=== PATIENT | male | born 1950 | race Caucasian/White ===

== ENCOUNTER 2016-11-14 21:34 | Observation (INO) | payer BC ==
--- NOTE | ~2016-11-14 | HP ---
History And Physical [address] [address] NAME: SULEMAN BOLDEN : 50 STATUS : ADM Keith PAT#: [id number] AGE: 66 ADM/REG DATE : 11/14/16 MR#: [id number] REPORT SERV DATE: 11/15/16 DICTATED BY: DATE: REPORT STATUS : Draft TRANSCRIBED BY: MODL DATE: 11/15/16 DATE OF ADMISSION: 11/14/2016 TERMITE EXTERMINATOR HELPER: Garrison Arellano MD. SLEEP STUDY: Salvador Sharif MD CHIEF COMPLAINT: Chest pain and shortness of breath. HISTORY OF PRESENT ILLNESS: This is a 66-year-old white male with a history of coronary artery disease, status post PCI x2 in 2011; PE x3; and DVT. The patient reports to have started feeling palpitations about six months ago that have worsened over time and have started waking him up in the middle of the night. He also reports increased fatigue and shortness of breath that has been worse especially his shortness of breath on minimal exertion. He reports the shortness of breath to have started a few weeks ago. He reports chest pain radiating to his left arm being and 8-9/10 that has occurred intermittently in the past month, but has worsened on Tuesday. The pain was relieved somewhat with one nitroglycerin and the pain reoccurred before he came to the emergency room. He reports that he also was nauseous during his chest pain event. He did not have any diaphoresis, but he did have dizziness on standing. Currently, he denies any chest pain, shortness of breath, nausea, vomiting, or diaphoresis. The patient denies any personal history of a stroke. The patient denies any recent fevers or chills. No syncopal episodes. PAST MEDICAL HISTORY: 1. PE x3 and a DVT. He is followed by Dr. Avila. 2. Coronary artery disease, status post stents x2 in 2011. 3. Hyperlipidemia. 4. Hypertension. 5. Daytime somnolence, has seen Dr. Arce. 6. ZHANG, sees Dr. Sharif. PAST SURGICAL HISTORY: Left eyelid surgeries, sinus surgery, three detached retinas repair, left knee replacement, and a right thumb surgery. REVIEW OF SYSTEMS: A 14-point review of systems was performed significant for HPI. No other contributory diagnoses identified. ALLERGIES: ACETAMINOPHEN, REACTION GOUT. HOME MEDICATIONS: Aspirin 81 p.o. daily, carvedilol 6.25 p.o. twice a day, Zyrtec 5 mg p.o. p.r.n., Plavix 75 p.o. daily, Folbic two tabs p.o. daily, Cozaar 50 p.o. daily, NitroQuick 0.4 mg sublingual p.r.n., simvastatin 20 p.o. at bedtime, and apple cider vinegar one unit p.o. three times daily. History And Physical [address] [address] NAME: SULEMAN BOLDEN : 50 STATUS : ADM Keith PAT#: [id number] AGE: 66 ADM/REG DATE : 11/14/16 MR#: [id number] REPORT SERV DATE: 11/15/16 DICTATED BY: DATE: REPORT STATUS : Draft TRANSCRIBED BY: MODL DATE: 11/15/16 PHYSICAL EXAMINATION: VITAL SIGNS: BP 116/72, heart rate 58, respirations 18, temperature 97.5, O2 saturation 95% on room air. BMI 38.3. GENERAL: Cooperative, in no apparent distress. HEENT: Head normocephalic, anicteric. Normal EOM. PERRLA. No xanthelasma. Nares patent. Moist mucous membranes. NECK: Trachea midline. No thyromegaly, JVD or bruits. RESPIRATORY: Clear to auscultation bilaterally anterior and posterior. Respirations even and unlabored. No wheezes, rhonchi or crackles. CARDIOVASCULAR: Regular rate and rhythm. No murmur, rub or gallop appreciated. No chest wall tenderness to palpation. ABDOMEN: Soft, nontender, nondistended, normal bowel sounds auscultated throughout. No masses or organomegaly. Obesity. EXTREMITIES: No peripheral edema. DP/PT and radial pulses palpable bilaterally. No clubbing or cyanosis. SKIN: Warm, dry and intact. Normal turgor. No pallor or cyanosis. NEURO/PSYCH: Alert, oriented x3 with no acute distress. Affect appropriate to current situation. LABORATORY DATA: Sodium 140, potassium 3.6, BUN 20, creatinine 0.96, GFR 95, glucose 131, calcium 9.1, magnesium 2.1. White blood cells 5.1, hemoglobin 12.9, hematocrit 38.3, platelets 133. INR 1.0. Troponins x2 have been less than 0.02. Chest PA and lateral; lungs are clear. Heart size is normal. EKG done on 11/15/2016 at 0745 shows sinus alexis, first-degree AV block with PVC. machine accountant shows sinus rhythm, 69, with frequent PVCs. ASSESSMENT AND PLAN: 1. Substernal chest pain. Chest pain x2 less than 0.02. EKG shows first-degree AV block with PVCs. Cardiac risk factors include hypertension, hyperlipidemia, and coronary artery disease. The patient has been observed in the CPOU to rule out myocardial infarction with serial enzymes and serial EKGs. We will keep the patient n.p.o. We will plan an MPI after a CTA of the chest. If the CTA of the chest is negative, we will get an MPI. If stress test shows no ischemia or low risk scan, RN may discharge the patient home. If anything is suggestive of ischemia, Cardiology referral will be initiated. The patient recently saw Dr. Arellano on 11/11/2016 and was given a 24-hour Holter monitor, which I have instructed the family to return to the office today so we can get those results. Dr. Arellano had also ordered an exercise stress test for this coming up Tuesday, therefore, we will plan an MPI today due to patient's chest pain. machine accountant only shows frequent PVCs, no other ectopy noted. The patient had a cardiac cath on 08/29/2014; conclusion shows coronary artery disease with prior PCI to LAD crescendo angina, CCS IV. 2. Patent stent to LAD with moderate disease of remaining LAD segments that does not appear flow limiting and is without significant change compared to 2014 study. 3. Normal left ventricular systolic function. 4. No angiographic evidence of mitral regurgitation. History And Physical [address] [place]. [address] NAME: SULEMAN BOLDEN : 50 STATUS : ADM Keith PAT#: [id number] AGE: 66 ADM/REG DATE : 11/14/16 MR#: [id number] REPORT SERV DATE: 11/15/16 DICTATED BY: DATE: REPORT STATUS : Draft TRANSCRIBED BY: MODL DATE: 11/15/16 5. No gradient across aortic valve on LV pullback. RECOMMENDATION: 1. Medical therapy for coronary artery disease and cardiovascular risk factors and recommended addition of long-lasting nitrate. 2. Shortness of breath. The patient reports to have shortness of breath with minimal exertion. He has a history of PE x3; therefore, today we will get a CT of the chest due to those reasons above. If the CTA does not show any PE, we will then schedule an MPI today. 3. Coronary artery disease, status post PCI. The patient is on aspirin, beta carl, Plavix, and Zocor, we will continue those. 4. Hyperlipidemia. The patient is on statin. We will continue that. 5. Obstructive sleep apnea. Patient wears a CPAP and has brought it with him and uses it during the night or during naps during the day. 6. Obesity, has a BMI of 38.3. We discussed weight management. EKS/MODL Wojciech Ronquillo APN / [id number] CC: Marnia Pathak, MSN, REINFORCED STEEL PLACING SUPERVISOR-BC PK MENARD MD Mark Thel, M.D.
--- NOTE | ~2016-11-14 | CN ---
Consultation Report [facility] [address] [place]. [address] NAME: SULEMAN FITZPATRICK : 50 STATUS : ADM Keith PAT#: [id number] AGE: 66 ADM/REG DATE : 11/14/16 MR#: [id number] REPORT SERV DATE: 11/15/16 DICTATED BY: NICHO LEAVITT DATE: 11/15/16 REPORT STATUS : Draft TRANSCRIBED BY: MODL DATE: 11/15/16 GI CONSULTATION DATE OF CONSULTATION: 11/15/2016 REASON FOR CONSULTATION: Evaluation and management of abnormal CTA of the pancreas. HISTORY OF PRESENT ILLNESS: Mr. Fitzpatrick is a 66-year-old male patient, who has been seen by Dr. Talavera in the distant past, most recently, followed by Dr. Cortes in [facility], who presented to [facility] on the 11/14/2016 with a chief complaint of chest pain and shortness of breath. He has a history of coronary artery disease. He is status post PCI x2 in 2011 with the use of Plavix. He also in that year had PE x3 as well as DVT. He was on a regimen of Coumadin for one year. He had since been off that. He has been having what he describes as palpitations for several months that has worsened. He states that he has been waking up at night. He has shortness of breath especially on exertion with chest pain that radiated to his left arm which he states worsened on Tuesday causing him to come in to [facility] for further evaluation. He has had a stress test which results are not back from that yet. He also underwent a CTA of the chest to rule out pulmonary embolus as he was complaining of shortness of breath and has a pertinent history of PE. That exam did not show any pulmonary embolus, it just showed some atelectasis, but it did reveal a developing 1.3 cm pancreatic body cystic lesion, potentially a mucinous/serous cystadenoma or a side-branch IPMN. Therefore, we were consulted to see him for further evaluation. In the body of the report it indicates that this area has been developing since 2011. He is unaware of anything abnormal with his pancreas. He also had showed predominant fatty replacement of his pancreas. He denies any abdominal pain, nausea, vomiting, heartburn, indigestion, or trouble swallowing. He states he has had an EGD as well as colonoscopy within the last four years [address]. Cortes. I have discussed this with the patient as well as his , who is present. I have discussed this with Dr. Haines. We will try to discuss with Dr. Veloz, who read the report to see how this has changed since 2011, if so, we would most likely follow him up as an outpatient with Dr. Noguera to discuss an endoscopic ultrasound. Potential of CT pancreatic protocol before he is discharged today. PAST MEDICAL HISTORY: He has a pertinent past medical history for chest pain; coronary artery disease, status post stents in 2011; PE and DVT in 2012, treated with one year of Coumadin; hyperlipidemia; hypertension; obstructive sleep apnea with CPAP; obesity. SURGICAL HISTORY: Eyelid surgery, sinus surgery, detached retinal repair, left knee replacement, right thumb surgery. FAMILY HISTORY: Positive for liver carcinoma in his mother. SOCIAL HISTORY: Negative for alcohol, tobacco, or illicits. He lives independently with his . Consultation Report [address] [place]. [address] NAME: SULEMAN FITZPATRICK : 50 STATUS : ADM Keith PAT#: [id number] AGE: 66 ADM/REG DATE : 11/14/16 MR#: [id number] REPORT SERV DATE: 11/15/16 DICTATED BY: NICHO LEAVITT DATE: 11/15/16 REPORT STATUS : Draft TRANSCRIBED BY: FERNANDA DATE: 11/15/16 ALLERGIES: TO TYLENOL. HOME MEDICATIONS: Aspirin, Coreg, Zyrtec, Plavix, Mobic, Cozaar, nitroglycerin, Zocor, and apple cider vinegar. REVIEW OF SYSTEMS: A 10-point review of systems has been obtained with pertinent positives being addressed in the history of present illness. PHYSICAL EXAMINATION: VITAL SIGNS: Temperature is 98.0, pulse 53, respirations 15, blood pressure 145/79. NEUROLOGIC: Reveals an alert, obese male, resting in bed with no focal deficits. GENERAL: Cooperative, in no apparent distress. Awake, alert, and oriented x3. HEAD, EARS, EYES, NOSE, AND THROAT: Anicteric. Pupils equal, round, and reactive to light and accommodation. Normocephalic and atraumatic. NECK: No JVD. No palpable nodes. Supple. LUNGS: Clear anteriorly with normal respiratory effort exhibited. Equal expansion. CARDIOVASCULAR SYSTEM: Regular rate and rhythm. ABDOMEN: Obese, nontender, nondistended. EXTREMITIES: Scant lower extremity edema. He has normal distal palpable pulses. SKIN: Warm, dry, and intact. PERTINENT LABORATORY DATA: Sodium 145, potassium 3.6, BUN is 20, creatinine 0.96. White count 5.1, hemoglobin 12.9, hematocrit is 38.3, platelet count of 133. LFTs within normal range. Normal lipase. ASSESSMENT: 1. Abnormal CT of the pancreas with developing pancreatic body cystic lesion, question mucinous/serous cystoadenoma versus side branch intraductal papillary mucinous neoplasm. 2. Chest pain. 3. Shortness of breath. 4. History of coronary artery disease with stents, on aspirin and Plavix. 5. History of pulmonary embolism and deep venous thrombosis in 2011, treated with one year of Coumadin. 6. Obesity. PLAN: 1. Stress test results are pending at this time. 2. We will check a CA-19-9. 3. CT abdomen pelvis with pancreatic protocol versus MRCP versus outpatient EUS. He will need his Plavix held for five days prior to any endoscopic ultrasound. We will follow. Consultation Report [address] [place]. [address] NAME: SULEMAN FITZPATRICK : 50 STATUS : ADM Keith PAT#: [id number] AGE: 66 ADM/REG DATE : 11/14/16 MR#: [id number] REPORT SERV DATE: 11/15/16 DICTATED BY: NICHO LEAVITT DATE: 11/15/16 REPORT STATUS : Draft TRANSCRIBED BY: FERNANDA DATE: 11/15/16 REYNOLD/FERNANDA CYRUS Mchugh / [id number] CC: Marina Pathak, MSN, BRIDGE INSTRUCTOR-BC PK MENARD
[~2016-11-14 21:34] MED LIST: ANDROGEL5 TOP; ASAB PO; ATV1 PO; C5 PO; COREG3 PO; COREG6 PO; CYANO1000T PO; FOLIC ACID PO; GINKGO BILO2 PO; IMDUR30 PO; MAX25 PO; MULTIPLE VIT PO; NITROQUICK0.4 MG SL; PLAVIX PO; PRILO PO; PRIN10 PO; PROBIOTIC PO; TESTOST CYP200 MG/ML IM; VIT B-SIX 50 MG50 MG PO; VITAMIN B-12 PO; VITAMIN B-6 PO; ZANTAC150 MG PO; ZESTRIL10 MG PO; ZOCOR20 PO
[2016-11-14 22:10] LABS: BASOPHILS 0.4 %; BASOPHILS ABSOLUTE 0.02 10/3/uL (0.0-0.16); EOSINOPHILS 7.2 %; EOSINOPHILS ABSOLUTE 0.37 10/3/uL (0.0-0.53); ER CBC TAT 0 Hrs 07 Mins; HEMATOCRIT 38.3 % (40.0-51.0); HEMOGLOBIN 12.9 g/dL (13.6-17.8); LYMPHOCYTES 37.7 %; LYMPHOCYTES ABSOLUTE 1.93 10/3/uL (0.67-4.30); MEAN CORPUS HGB CONC 33.7 g/dL (32.0-36.0); MEAN CORPUSCULAR HEMOGLOB 31.9 pg (26.0-34.0); MEAN CORPUSCULAR VOLUME 94.6 fL (80-100); MEAN PLATELET VOLUME 10.4 fL (9.2-13.0); MONOCYTES 8.4 %; MONOCYTES ABSOLUTE 0.43 10/3/uL (0.21-1.20); NEUTROPHILS 46.3 %; NEUTROPHILS ABSOLUTE 2.37 10/3/uL (2.02-8.40); PLATELET COUNT 133 10/3/uL (150-400); RBC DISTRIBUTION WIDTH 12.9 % (12.0-16.0); RED CELL COUNT 4.05 10/6/uL (4.7-6.1); WHITE BLOOD CELLS 5.1 10/3/uL (4.5-10.5)
[2016-11-14 22:16] LABS: MANUAL DIFF NO %
[2016-11-14 22:25] LABS: PARTIAL THROMBO TIME 29.3 SEC (22.5-37.2); PROTIME (NOT ORD) 12.7 SEC (12.0-14.5)
[2016-11-14 22:28] LABS: BUN (BLOOD UREA NITROGEN) 20 MG/DL (6-23); CALCIUM, SERUM 9.1 MG/DL (8.5-10.4); CHEST PAIN PROFILE TAT 0 Hrs 25 Mins; CHLORIDE, SERUM 111 MMOL/L (96-112); CO2 (CARBON DIOXIDE) 27 MMOL/L (24-34); CREATININE 0.96 MG/DL (0.70-1.30); GFR AFRICAN AMERICAN 95 ML/MIN (>=60); GFR NON AFRICAN AMERICAN 82 ML/MIN (>=60); GLUCOSE, SERUM 131 MG/DL (60-99); POTASSIUM, SERUM 3.6 MMOL/L (3.5-5.3); SODIUM, SERUM 145 MMOL/L (135-148); TROPONIN I <0.02 NG/ML (<0.05)
[2016-11-15] MEDS ORDERED: ASAB PO (02:19)
[2016-11-15] MEDS ORDERED: PLAVIX PO (02:20)
[2016-11-15] MEDS ORDERED: ZOCOR20 PO (02:20)
[2016-11-15] MEDS ORDERED: COREG12 PO (02:20)
[2016-11-15] MEDS ORDERED: FOLBIC PO (02:21)
[2016-11-15] MEDS ORDERED: COZ25 PO (02:21)
[2016-11-15] MEDS ORDERED: NITROQUICK0.4 MG SL (02:22)
[2016-11-15] MEDS ORDERED: CETIRIZINE HCL5 MG PO (02:23)
[2016-11-15] MEDS ORDERED: APPLE CIDER VINEGAR PO (02:24)
[2016-11-15] MEDS ORDERED: ULTRAM50 PO (08:10)
[2016-11-15 08:31] LABS: TROPONIN I <0.02 NG/ML (<0.05)
[2016-11-15 16:34] LABS: CHOL/HDL RATIO(NOT ORDER) 3.4 (0-5); CHOLESTEROL 129 MG/DL (< 200); HDL CHOLESTEROL 38 MG/DL (> 39); LDL CHOLESTEROL 74 MG/DL (< 130); NON-HDL CHOLESTEROL 91 MG/DL (< 160); TRIGLYCERIDE 87 MG/DL (< 150)
[2016-11-16 06:04] LABS: ALKALINE PHOSPHATASE 45 U/L (45-117); BUN (BLOOD UREA NITROGEN) 12 MG/DL (6-23); CALCIUM, SERUM 8.3 MG/DL (8.5-10.4); CHLORIDE, SERUM 113 MMOL/L (96-112); CO2 (CARBON DIOXIDE) 28 MMOL/L (24-34); CREATININE 0.84 MG/DL (0.70-1.30); DIRECT BILIRUBIN 0.1 MG/DL (0.0-0.4); GFR AFRICAN AMERICAN 106 ML/MIN (>=60); GFR NON AFRICAN AMERICAN 91 ML/MIN (>=60); GLUCOSE, SERUM 104 MG/DL (60-99); INDIRECT BILIRUBIN(NOT ORDER) 0.5 MG/DL (0.1-0.9); POTASSIUM, SERUM 3.9 MMOL/L (3.5-5.3); SGOT(AST) 14 U/L (5-40); SGPT(ALT) 28 U/L (5-65); SODIUM, SERUM 145 MMOL/L (135-148); TOTAL BILIRUBIN 0.6 MG/DL (0-1.2); TOTAL PROTEIN 5.8 G/DL (6.0-8.5)
[2016-11-16 10:51] LABS: CA-19-9 < 2.0 U/ML (< 37.0)
[2016-11-16] MEDS ORDERED: PROTONIX PO (12:25)
[2017-01-12] MEDS ORDERED: AMB5 PO (15:20)
[2017-01-12] MEDS ORDERED: FOLIC ACID800 MCG PO (15:54)
[2017-01-12] MEDS ORDERED: VITAMIN B-625 MG PO (15:55)
[2017-01-12] MEDS ORDERED: CYANO1000T PO (15:55)
== END 2016-11-16 13:00 | disposition home or self-care (01) ==
LOC: ER 21:34 → CDU1 22:00
PROVIDERS: Clinical Nurse Specialist; Emergency Medicine; Nurse Practitioner Family
DX: I25.110 Atherosclerotic heart disease of native coronary artery with unstable angina pectoris (principal); E78.00 Pure hypercholesterolemia, unspecified; I26.99 Other pulmonary embolism without acute cor pulmonale; I10 Essential (primary) hypertension; E78.5 Hyperlipidemia, unspecified; G47.33 Obstructive sleep apnea (adult) (pediatric); E66.9 Obesity, unspecified; Z68.38 Body mass index [BMI] 38.0-38.9, adult; Z99.81 Dependence on supplemental oxygen; Z88.1 Allergy status to other antibiotic agents; Z88.8 Allergy status to other drugs, medicaments and biological substances
CPT/HCPCS: 71020; 71275; 78452; 80048; 80061; 80076; 82150; 83690; 83735; 84484; 85025; 85610; 85730; 86301; 93005; 93017; 93458; 96374; 96376; 99152; 99285; A9270-GY; A9502; C1769; C1887; C1894; G0378; J2250; J3010; Q9967